=== PATIENT | female | born 1975 | race Caucasian/White ===

== ENCOUNTER 2019-04-09 17:02 | Emergency (ER) | payer MEDICAID ==
[2019-04-09] MEDS: IBUPROFEN 600 MG TAB PO (18:15)
[2019-04-09] MEDS: PSEUDOEPHEDRINE 30 MG TAB PO (18:17)
== END 2019-04-09 18:43 | disposition home or self-care (01) ==
LOC: FTE 18:43
DX: H74.8X1 Other specified disorders of right middle ear and mastoid (principal)
CPT/HCPCS: 99282; Z7610